=== PATIENT | male | born 1985 | race American Indian/Alaskan Native ===

== ENCOUNTER 2019-02-19 04:54 | Emergency (ER) | payer SELFPAY ==
[2019-02-19 05:01] VITALS: BP 128/81
--- NOTE | 2019-02-19 05:47 | XRay Report ---
LEFT ANKLE 3 VIEWS INDICATION / CLINICAL INFORMATION: Rolled left ankle unable to put weight on it COMPARISON: None available. FINDINGS: BONES / JOINT(S): No acute fracture or subluxation. No significant arthritis. SOFT TISSUES: No significant abnormality. ADDITIONAL FINDINGS: None. Signer Name: Jarad Alvarado MD Signed: 02/19/2019 5:42 AM Workstation Name: [id number]
[2019-02-19] MEDS ORDERED: IBUPROFEN 600 MG TAB PO ONE ×2 (06:26→07:14)
[2019-02-19] MEDS ORDERED: ACETAMINOPHEN 500 MG TAB ONE (06:26)
[2019-02-19] MEDS ORDERED: ACETAMINOPHEN 500 MG TAB PO ONE (07:13)
--- NOTE | 2019-02-19 07:23 | Emergency Department Report ---
HPI - General Chief Complaint: Extremity Injury, Lower Time Seen by Provider: 02/19/19 07:16 - HPI HPI: 33-year-old male presents to the emergency department with complaint of left ankle and foot pain after he stepped in a ditch late last night and rolled the foot and ankle. He is unable to bear weight or ambulate. Pain is currently 10 out of 10 and worsens with any type of movement. He has not taken anything for his symptoms prior to arrival today. No past medical history. ED Past Medical Hx - Past Medical History Previous Medical History?: No - Surgical History Past Surgical History?: No - Social History Smoking Status: Never Smoker - Medications Home Medications: Home Medications Medication Instructions Recorded Confirmed Last Taken Type Ibuprofen [Motrin 600 MG tab] 600 mg PO Q8H PRN #20 tablet 02/19/19 Unknown Rx ED Review of Systems ROS: Stated complaint: LEFT FOOT /ANKLE PAIN Other details as noted in HPI Comment: All other systems reviewed and negative Constitutional: denies: chills, fever Musculoskeletal: arthralgia. denies: joint swelling Skin: denies: rash, lesions Neurological: denies: numbness, paresthesias Physical Exam - Physical Exam Vital Signs: Vital Signs 02/19/19 02/19/19 05:00 06:00 Temperature 98.7 F Pulse Rate 89 Respiratory 18 20 Rate Blood Pressure 128/81 O2 Sat by Pulse 97 Oximetry General: GENERAL: The patient is well-developed well-nourished. HENT: Normocephalic. Atraumatic. Patient has moist mucous membranes. EYES: Extraocular motions are intact. NECK: Supple. Trachea is midline. ABDOMEN: There is no abdominal distention. SKIN: Skin is warm and dry. NEURO: The patient is awake, alert, and oriented. The patient is cooperative. Normal speech. MUSCULOSKELETAL: There is some tenderness to palpation to the left lateral malleolus and the dorsal left midfoot but no obvious deformity. +2 over 4 dorsalis pedis pulse. ED Course Vital Signs 02/19/19 02/19/19 05:00 06:00 Temperature 98.7 F Pulse Rate 89 Respiratory 18 20 Rate Blood Pressure 128/81 O2 Sat by Pulse 97 Oximetry ED Medical Decision Making - Radiology Data Radiology results: image reviewed interpreted by me: X-ray of the left ankle and foot do not show any fractures, dislocations, or any acute processes. - Medical Decision Making This patient presents with left ankle and foot pain after stepping in a hole and rolling the foot and ankle. No obvious deformities. X-rays negative for any fracture or dislocation. He was placed in a Sukh wrap, given crutches to be nonweightbearing, and was given referrals for orthopedists and podiatry. - Differential Diagnosis fracture, sprain, dislocation, contusion Critical Care Time: No Critical care attestation.: If time is entered above; I have spent that time in minutes in the direct care of this critically ill patient, excluding procedure time. ED Disposition Clinical Impression: Left foot pain Left ankle pain Qualifiers: Chronicity: acute Qualified Code(s): M25.572 - Pain in left ankle and joints of left foot Disposition: TO HOME OR SELFCARE Is pt being admited?: No Condition: Stable Instructions: Ankle Sprain (ED), Foot Sprain (ED), Arthralgia (ED) Additional Instructions: I have given you a referral for a local orthopedist, Dr. Patel, and a local customs consultant, Dr. Mohan, to follow up regarding your left ankle and foot pain. Use the crutches to remain nonweightbearing until follow-up with one of these specialists. Return to the emergency Department with any worsening of your symptoms or any acute distress. Prescriptions: Ibuprofen [Motrin 600 MG tab] 600 mg PO Q8H PRN #20 tablet PRN Reason: Pain Referrals: JORY PATEL MD [Staff Physician] - 3-5 Days CODY MOHAN DPM [Staff Physician] - 3-5 Days Time of Disposition: 08:17
--- NOTE | 2019-02-19 08:37 | XRay Report ---
LEFT FOOT HISTORY: Left foot pain. COMPARISON: None. TECHNIQUE: 3 views of the left foot were obtained. FINDINGS: Bones: No fracture or dislocation. Mild diffuse osteopenia. Joint spaces: Maintained. Soft tissues: No significant abnormality. Additional findings: None. IMPRESSION: 1. Osteopenia but otherwise normal Signer Name: Yuan Hurtado MD Signed: 02/19/2019 8:33 AM Workstation Name: [id number]
== END 2019-02-19 08:30 | disposition home or self-care (01) ==
LOC: ED 04:54
DX: M25.572 Pain in left ankle and joints of left foot (principal); Z79.899 Other long term (current) drug therapy; W22.8XXA Striking against or struck by other objects, initial encounter; Y93.89 Activity, other specified; Y92.89 Other specified places as the place of occurrence of the external cause; Y99.8 Other external cause status